=== PATIENT | male | born 1985 | race Caucasian/White ===

== ENCOUNTER → 2019-03-15 11:33 | Outpatient (CLI) | payer OTHER, SELFPAY ==
--- NOTE | 2019-03-15 | DI.RAD.S_ITS ---
PROCEDURE: XR CHEST 2V INDICATIONS: LEFT RIB PAIN AND SHORTNESS OF BREATH TECHNIQUE: 2 views of the chest were acquired. COMPARISON: [facility], [place], XR RIBS LT 2V, 03/15/2019, 12:06. [facility], [place], CHEST 2 VIEW, 11/08/2015, 11:26. FINDINGS: Surgical changes and devices: None. Lungs and pleura: Lungs are clear. No pleural effusions or pneumothorax. Incidental note is made of a BB overlying the left lung base, which is not evident on the lateral view and was not appreciated on the prior study. This is felt to represent a marker. Mediastinum: Mediastinal contours are normal. Heart size is normal. Bones and chest wall: No suspicious bony abnormalities. Soft tissues appear unremarkable. IMPRESSION: No acute cardiopulmonary process is evident. Dictated by: Leonel Peter M.D. on 03/15/2019 at 14:23 Approved by: Leonel Peter M.D. on 03/15/2019 at 14:24
--- NOTE | 2019-03-15 | DI.RAD.S_ITS ---
PROCEDURE: XR RIBS LT 2V INDICATIONS: LEFT RIB PAIN AND SHORTNESS OF BREATH TECHNIQUE: 2 views of the left ribs were acquired. COMPARISON: None. FINDINGS: Surgical changes and devices: None. Bones and chest wall: No displaced left rib fractures or dislocations. No suspicious bony lesions. Overlying soft tissues appear unremarkable. Lungs and pleura: The visualized lung appears clear. No pleural effusions or pneumothorax are visible. IMPRESSION: No displaced left rib fractures are evident. Dictated by: Leonel Peter M.D. on 03/15/2019 at 14:24 Approved by: Leonel Peter M.D. on 03/15/2019 at 14:25
== END ==
PROVIDERS: Visit Provider Internal Medicine
DX: R06.02 Shortness of breath (principal); R07.81 Pleurodynia
CPT/HCPCS: 71046; 71100

== ENCOUNTER 2020-10-06 07:14 | Emergency (ER) | payer OTHER, SELFPAY ==
[2020-10-06] VITALS (17 sets, daily range): BP systolic 119–148; BP diastolic 74–97; PULSE 55–96; RESP 14–26; TEMP 36.9; O2SAT 96–99; BMI 29.4
--- NOTE | 2020-10-06 07:25 | DI.RAD.S_ITS ---
PROCEDURE: XR CHEST 1V INDICATIONS: chest pain TECHNIQUE: One view of the chest was acquired. COMPARISON: [facility], , XR CHEST 2V, 03/15/2019, 12:03. [facility], , CHEST 2 VIEW, 11/08/2015, 11:26. FINDINGS: Surgical changes and devices: None. Lungs and pleura: Lungs are clear. No pleural effusions or pneumothorax. Mediastinum: Mediastinal contours appear normal. Heart size is normal. Bones and chest wall: No suspicious bony lesions. Overlying soft tissues appear unremarkable. IMPRESSION: Normal for age, source of current chest pain symptoms is not seen. Dictated by: Cory Heck M.D. on 10/06/2020 at 8:11 Approved by: Cory Heck M.D. on 10/06/2020 at 8:12
[2020-10-06 07:31] LABS: Add Manual Diff / Slide Review NO; Basophils Absolute Auto 100 /uL (0-100); Basophils Percent Auto 0.6 % (0-2); Eosinophils Absolute Auto 100 /uL (0-450); Eosinophils Percent Auto 0.9 % (2-4); Hematocrit 42.1 % (41-53); Hemoglobin 14.8 g/dL (13.5-17.5); Lymphocytes Absolute Auto 2300 /uL (1100-4500); Lymphocytes Percent Auto 22.4 % (25-40); Mean Corpuscular HGB Conc 35.2 % (30-36); Mean Corpuscular Hemoglobin 30.5 PG (26-34); Mean Corpuscular Volume 86.7 fL (80-100); Monocytes Absolute Auto 1400 /uL (0-900); Monocytes Percent Auto 13.8 % (3-14); Neutrophils Absolute Auto 6400 /uL (1500-7000); Neutrophils Percent Auto 62.3 % (50-75); Platelet Count 184 X10^3/uL (150-400); Red Blood Cell Count 4.86 X10^6/uL (4.5-5.9); Red Cell Distribution Width 12.1 % (11.6-14.8); White Blood Cell Count 10.2 X10^3/uL (4.5-11.0)
--- NOTE | 2020-10-06 07:31 | ED.CHESTPAIN ---
HPI - Chest Pain General Chief Complaint: Chest Pain Stated Complaint: PAIN IN LEFT SHOULDER TO CHEST WOKE HIM UP Time Seen by Provider: 10/06/20 07:31 Source: patient Mode of arrival: Ambulatory Limitations: no limitations History of Present Illness HPI narrative: This is a 34-year-old male comes emergency department complaint of chest pressure and pain that woke him up from sleep this morning at 6:00 a.m.. Patient does have little bit of shortness of breath. He has had a bili diaphoresis. No nausea or vomiting. He denies any radiation except to his shoulder. Patient denies any radiation to his back. He denies any musculoskeletal pain recent injury. Patient denies any other GI or urinary symptoms. Patient denies any medical issues. He had eye surgery the age of 8 but has not had any other prior surgeries. He does smoke half pack per day of tobacco. One mixed drink daily. THC for illicit but no other recreational drugs. He denies any cardiac family history. Related Data Allergies Allergy/AdvReac Type Severity Reaction Status Date / Time No Known Drug Allergies Allergy Verified 10/06/20 07:21 Review of Systems Review of Systems ROS Unobtainable: All systems reviewed & are unremarkable except as noted in HPI and below Patient History Social History Smoking Status: Current every day smoker Smoking Status: Current every day smoker alcohol intake frequency: a few times a week Substance Use Type: marijuana Exam Narrative Exam Narrative: GENERAL: Alert and oriented x three, well-nourished male in mild distress. Patient is diaphoretic. HEENT: Head normocephalic, atraumatic, EOMI, pupils reactive, face symmetric, moist mucous membranes NECK: Supple, full range of motion CARDIOVASCULAR: Regular rate and rhythm without murmurs, rubs or gallops. No reproducible chest pain. RESPIRATORY: Breath sounds equal bilaterally, no wheezes rales or rhonchi. No tachypnea. ABDOMEN: Soft, nontender. Normoactive bowel sounds all 4 quadrants. No guarding or rebound, rigidity, no mass, no pulsatile mass. : No CVA tenderness EXTREMITIES: Normal range of motion, no clubbing or edema. Neurovascularly intact NEUROLOGICAL: Cranial nerves II through XII grossly intact. Moving all extremities SKIN: Warm, dry, no petechiae, no rashes or lesions. Initial Vital Signs Initial Vital Signs: Vital Signs Temperature 98.5 F 10/06/20 07:21 Pulse Rate 75 10/06/20 07:21 Respiratory Rate 16 10/06/20 07:21 Blood Pressure 137/80 10/06/20 07:21 Pulse Oximetry 99 10/06/20 07:21 Course Orders Ordered: ED Orders 10/06/20 07:25 XR chest 1V Stat Complete Blood Count AUTO DIFF Stat Comprehensive Metabolic Panel Stat Lipase Stat NT-proBNP (BNP-Adult 18+) Stat Partial Thromboplastin Time Stat Prothrombin Time INR Stat Troponin & CK Cardiac Panel Stat EKG-12 Lead Stat Discontinued Medications Aspirin (Aspirin 81 Mg Chew Tab) 324 mg PO NOW ONE Stop: 10/06/20 07:32 Last Admin: 10/06/20 07:39 Dose: 324 mg Documented by: GILSON Heparin Sodium (Porcine) (Heparin 5,000 Unit/Ml Vial) 5,000 unit IV NOW ONE Stop: 10/06/20 07:42 Last Admin: 10/06/20 07:43 Dose: 5,000 unit Documented by: GILSON Sodium Chloride (Normal Saline 0.9%) 1,000 mls @ 150 mls/hr IV CONT QIANA Last Infusion: 10/06/20 08:04 Dose: 0 mls/hr Documented by: Admin: 10/06/20 07:39 Dose: 150 mls/hr Documented by: GILSON Heparin Sodium/Dextrose (Heparin Drip) 25,000 unit in 500 mls @ 20.466 mls/hr IV CONT QIANA; Protocol Last Infusion: 10/06/20 08:04 Dose: 0 units/kg/hr, 0 mls/hr Documented by: Admin: 10/06/20 07:45 Dose: 12 units/kg/hr, 20.466 mls/hr Documented by: GILSON Nitroglycerin (Nitroglycerin 0.4 Mg Sl Tab) 0.4 mg SL [id number] PRN PRN Reason: pain Last Admin: 10/06/20 07:52 Dose: 0.4 mg Documented by: Admin: 10/06/20 07:40 Dose: 0.4 mg Documented by: GILSON Consultations Consultation #1: Dr. Rafy SHEPPARD. Spoke with emergency physician. Reviewed patient's EKG which does appear to show new changes from a prior in 2016. Patient has somewhat convincing story and is diaphoretic here in the department. Patient does not have any significant history other than tobacco use and THC with no significant family cardiac history. EKG was faxed. [facility] Lab Tech will re-contacted they were able to review prior to transfer. Dr. Hillman called back and they are currently involved with too many STEMI's and as that we redirect to alternate facility. Time: 07:41 Consultation #2: Dr. Traylor, at [facility] accepts for transfer. Patient labs are pending. Time: 07:53 Vital Signs Vital signs: Vital Signs - 8 hr 10/06/20 07:21 10/06/20 07:35 10/06/20 07:37 Temperature 98.5 F Pulse Rate 75 65 56 L Respiratory Rate 16 24 23 Blood Pressure 137/80 135/97 H Pulse Oximetry 99 98 98 10/06/20 07:40 10/06/20 07:44 10/06/20 07:45 Temperature Pulse Rate 95 H 68 Respiratory Rate 26 H 23 Blood Pressure 135/78 148/83 H Pulse Oximetry 98 10/06/20 07:46 10/06/20 07:47 10/06/20 07:48 Temperature Pulse Rate 60 72 60 Respiratory Rate 16 20 16 Blood Pressure Pulse Oximetry 97 97 10/06/20 07:49 10/06/20 07:50 10/06/20 07:51 Temperature Pulse Rate 57 L 59 L 67 Respiratory Rate 15 20 21 Blood Pressure 119/74 Pulse Oximetry 96 97 97 10/06/20 07:52 10/06/20 07:53 10/06/20 07:54 Temperature Pulse Rate 58 L 67 96 H Respiratory Rate 14 23 25 H Blood Pressure 119/74 130/82 Pulse Oximetry 98 98 98 10/06/20 07:55 10/06/20 07:56 Temperature Pulse Rate 81 78 Respiratory Rate 20 20 Blood Pressure Pulse Oximetry 98 MDM - Chest Pain Lab Data Result diagrams: 10/06/20 07:25 10/06/20 07:25 Labs: Lab Results 10/06/20 10/06/20 10/06/20 Range/Units 07:25 07:25 07:25 WBC 10.2 (4.5-11.0) X10^3/uL RBC 4.86 (4.5-5.9) X10^6/uL Hgb 14.8 (13.5-17.5) g/dL Hct 42.1 (41-53) % MCV 86.7 (80-100) fL MCH 30.5 (26-34) PG MCHC 35.2 (30-36) % RDW 12.1 (11.6-14.8) % Plt Count 184 (150-400) X10^3/uL Neut % (Auto) 62.3 (50-75) % Lymph % (Auto) 22.4 L (25-40) % [place] % (Auto) 13.8 (3-14) % Eos % (Auto) 0.9 L (2-4) % Baso % (Auto) 0.6 (0-2) % Neut # (Auto) 6400 (2709-9573) /uL Lymph # (Auto) 2300 (2987-3545) /uL [place] # (Auto) 1400 H (0-900) /uL Eos # (Auto) 100 (0-450) /uL Baso # (Auto) 100 (0-100) /uL PT 12.1 (10.1-12.7) SECONDS INR 1.1 (0.9-1.3) APTT 34 (26.4-36.2) SECONDS Sodium 139 (137-145) mmol/L Potassium 4.0 (3.4-5.1) mmol/L Chloride 103 (98-107) mmol/L Carbon Dioxide 29 (22-32) mmol/L BUN 12 (9-20) mg/dL Creatinine 0.86 (0.66-1.25) mg/dL Estimated GFR > 60.0 (>60) mL/min BUN/Creatinine Ratio 14.0 (6-22) Glucose 105 H (70-100) mg/dL Calcium 9.4 (8.4-10.2) mg/dL Total Bilirubin 0.6 (0.2-1.3) mg/dL AST 38 (17-59) IU/L ALT 27 (<50) IU/L Alkaline Phosphatase 90 (38-126) U/L Total Creatine Kinase 94 (55-170) U/L CK-MB (CK-2) TNP CK-MB (CK-2) Rel Index TNP Troponin I 0.710 H* (0.01-0.034) ng/mL NT-Pro-B Natriuret Pep 318 H (<125) pg/mL Total Protein 7.9 (6.3-8.2) g/dL Albumin 4.7 (3.5-5.0) g/dL Globulin 3.2 (1.7-4.1) g/dL Albumin/Globulin Ratio 1.5 (1.0-2.8) Lipase 53 (23-300) U/L Imaging Data Chest x-ray: Attestation: I personally reviewed and interpreted this imaging study as follows: My Impression: nap ECG Data Attestation: I personally reviewed and interpreted this ECG as follows: Prior ECG tracings: available for review Interpretation: Sinus bradycardia ST elevation in 3 2 in AVF. Patient appears have hyperacute T-waves in V4 through V6. Patient does have prior EKG that does not show elevation. MDM Narrative Medical decision making narrative: 34-year-old male with complaint of chest pain that started this morning with diaphoresis, nausea and shortness of breath. Patient appears to have new EKG changes that show elevation in 2 3 and AVF with possible hyper Q-waves in lateral leads. Patient has a prior EKG which does appear different today. Patient does possibly have a Q-wave. We do not have Cardiology available here. They are acutely tied up with multiple other patients so plan for transfer to PCI available facility. Aspirin 324 mg were given, nitro was given department with minimal improvement. Patient also started on heparin. Patient discussed plan to go to [facility]. I spoke with emergency room physician who accepts. EKG was faxed. Patient's labs and return in interim well being transferred and troponin is 0.708. Patients other labs do not show acute abnormalities. Critical Care Time Critical Care Time Critical Care Time: Yes Total Critical Care Time: 30 Attestation: The high probability of a clinically significant, sudden or life threatening deterioration of the [cardiac] system(s) required my full and direct attention, intervention and personal management. The aggregate critical care time was [] minutes. This time is in addition to time spent performing reported procedures but includes the following: [x] Data Review and interpretation [x] Patient assessment and monitoring of vital signs [x] Documentation [x] Medication orders and management Discharge Plan Departure Patient Disposition: Xfer Acute Care Hospital Clinical Impression: ST elevation (STEMI) myocardial infarction
[2020-10-06 07:38] LABS: INR 1.1 (0.9-1.3); Prothrombin Time 12.1 SECONDS (10.1-12.7)
[2020-10-06] MEDS: SODIUM CHLORIDE 0.9% 1,000 ML 150 ML IV (07:39)
[2020-10-06] MEDS: ASPIRIN 81 MG CHEW TAB 324 MG PO (07:39)
[2020-10-06] MEDS: NITROGLYCERIN 0.4 MG SL TAB SL ×2 (07:40→07:52)
[2020-10-06 07:41] LABS: PTT Partial Thromboplastin Tim 34 SECONDS (26.4-36.2)
[2020-10-06 07:42] LABS: Alanine Aminotransferase 27 IU/L (<50); Albumin 4.7 g/dL (3.5-5.0); Albumin Globulin Ratio 1.5 (1.0-2.8); Alkaline Phosphatase 90 U/L (38-126); Aspartate Aminotransferase 38 IU/L (17-59); Bilirubin Total 0.6 mg/dL (0.2-1.3); Blood Urea Nitrogen 12 mg/dL (9-20); Calcium 9.4 mg/dL (8.4-10.2); Carbon Dioxide 29 mmol/L (22-32); Chloride 103 mmol/L (98-107); Creatine Kinase 94 U/L (55-170); Estimated Glomerular Filt Rate > 60.0 mL/min (>60); Globulin 3.2 g/dL (1.7-4.1); Glucose 105 mg/dL (70-100); HEMOLYSIS < 15 (0-50); Lipase 53 U/L (23-300); Sodium 139 mmol/L (137-145); Total Protein 7.9 g/dL (6.3-8.2)
[2020-10-06] MEDS: HEPARIN 5,000 UNIT/ML VIAL 5000 UNIT IV (07:43)
[2020-10-06] MEDS: HEPARIN DRIP 25,000 UNIT/500 ML IV.SOLN 20.466 UNIT IV (07:45)
[2020-10-06 07:52] LABS: NT-proBNP (BNP-Adult 18+) 318 pg/mL (<125)
--- NOTE | 2020-10-06 08:05 | PC.NURSE ---
transferred with [facility] with Heparin gtt infusing at 20.47 mls/hour. normal saline at 150 cc hour. pt received # 2 of NTG tab. pain 2/out of 10 left chest wall, left shoulder
== END 2020-10-06 07:56 | disposition short-term general hospital (02) ==
PROVIDERS: Emergency Provider Emergency Medicine
DX: I21.3 ST elevation (STEMI) myocardial infarction of unspecified site (principal); R07.9 Chest pain, unspecified
CPT/HCPCS: 36415; 71045; 80053; 82550; 83690; 83880; 84484; 85025; 85610; 85730; 93005; 96365; 96375; 99285; 99291; J1644

== ENCOUNTER → 2021-07-12 16:18 | Outpatient (CLI) | payer BC, SELFPAY ==
--- NOTE | 2021-07-12 16:22 | DI.RAD.S_ITS ---
PROCEDURE: XR CHEST 2V INDICATIONS: CHEST PAIN TECHNIQUE: 2 views of the chest were acquired. COMPARISON: [facility], [place], XR CHEST 1V, 10/06/2020, 7:34. [facility], [place], XR CHEST 2V, 03/15/2019, 12:03. FINDINGS: Surgical changes and devices: None. Lungs and pleura: Lungs are clear. No pleural effusions or pneumothorax. Mediastinum: Mediastinal contours are normal. Heart size is normal. Bones and chest wall: No suspicious bony abnormalities. Soft tissues appear unremarkable. IMPRESSION: No acute cardiopulmonary disease. Dictated by: Jonatan Allen [facility] Interpreted: Jani Cornelius MD on 07/12/2021 at 17:16 Approved by: Jani Cornelius M.D. on 07/12/2021 at 17:47
== END ==
PROVIDERS: PCP Student in an Organized Health Care Education/Training Program; Referring Provider Student in an Organized Health Care Education/Training Program; Visit Provider Student in an Organized Health Care Education/Training Program
DX: R07.9 Chest pain, unspecified (principal); I10 Essential (primary) hypertension
CPT/HCPCS: 71046

== ENCOUNTER → 2021-08-04 13:04 | Outpatient (CLI) | payer BC, SELFPAY ==
--- NOTE | 2021-08-04 13:07 | DI.RAD.S_ITS ---
PROCEDURE: XR CHEST 2V INDICATIONS: CHEST PAIN TECHNIQUE: 2 views of the chest were acquired. COMPARISON: [facility], [place], XR RIBS LT 2V, 03/15/2019, 12:06. [facility], [place], CHEST 2 VIEW, 11/08/2015, 11:26. [facility], [place], XR CHEST 2V, 03/15/2019, 12:03. [facility], [place], XR CHEST 1V, 10/06/2020, 7:34. [facility], [place], XR CHEST 2V, 07/12/2021, 16:13. FINDINGS: Surgical changes and devices: None. Lungs and pleura: Lungs are clear. No pleural effusions or pneumothorax. Mediastinum: Mediastinal contours are normal. Heart size is normal. Bones and chest wall: No suspicious bony abnormalities. Soft tissues appear unremarkable. IMPRESSION: Normal plain films. Dictated by: Charly Gutierres M.D. on 08/04/2021 at 12:31 Approved by: Charly Gutierres M.D. on 08/04/2021 at 12:32
== END ==
PROVIDERS: PCP Student in an Organized Health Care Education/Training Program; Referring Provider Student in an Organized Health Care Education/Training Program; Visit Provider Student in an Organized Health Care Education/Training Program
DX: R07.89 Other chest pain (principal); I25.2 Old myocardial infarction; I10 Essential (primary) hypertension
CPT/HCPCS: 71046

== ENCOUNTER → 2021-08-30 | Outpatient (CLI) | payer BC, SELFPAY ==
--- NOTE | 2021-08-30 | DI.ECHO.S_ITS ---
[facility] +---------+ : : [address] : [address] : : : : [id number] : : : : Phone: [phone] Echocardiogram Report + + :Name: ALFREDO WILKINS Study Date: 08/30/2021 Height: 68 in : :[facility] ReadingLocation: Weight: 207 lb : : Gender: Male BSA: 2.1 m2 : :: 1985 Age: 35 yrs BP: 142/91 mmHg: :Reason For Study: Chest pain : :Ordering Physician: FANNY, : :FAITH Performed By: Cruzito Montalvo : :Referring: FAITH ESCOBEDO : + + Interpretation Summary The ejection fraction is estimated to be 55-60%. Diastolic parameters suggest probable normal left ventricular diastolic function and normal filling pressures. The right ventricle is normal in size and function. No significant valvular abnormalities. Unable to estimate PASP. Procedure: A two-dimensional transthoracic echocardiogram with color flow and Doppler was performed. The study quality was technically adequate. There is no prior echocardiogram noted for this patient. Left Ventricle: The left ventricle is normal in size and wall thickness. Left ventricular systolic function is normal. The ejection fraction is estimated to be 55-60%. There are no focal wall motion abnormalities. Diastolic parameters suggest probable normal left ventricular diastolic function and normal filling pressures. Right Ventricle: The right ventricle is normal in size and function. Atria: Both atria are normal in size. The interatrial septum grossly appears intact with no obvious evidence for an atrial septal defect. Mitral Valve: The mitral valve is normal in structure and function. There is no mitral regurgitation noted. Aortic Valve: The aortic valve is normal in structure and function. There is no aortic valve stenosis. No aortic regurgitation is present. Tricuspid Valve: The tricuspid valve is normal in structure and function. No tricuspid regurgitation. Pulmonary artery pressures cannot be estimated because of the lack of a measurable TR jet velocity. Pulmonic Valve: The pulmonic valve is normal in structure and function. There is no pulmonic valvular regurgitation. Great Vessels: The aortic root is normal size. The dimensions of the ascending aorta are normal. The IVC is of normal diameter and collapses greater than 50% with a sniff. This suggests a low right atrial pressure of 3 mm Hg. Pericardium/ Pleura There is no pericardial effusion. There is no pleural effusion. MMode/2D Measurements & Calculations LVIDd: 4.8 cm LVOT diam: 2.0 cm LVIDs: 3.2 cm FS: 33.3 % IVSd: 0.90 cm LVPWd: 0.80 cm LV wood. diameter/BSA (cm/m^2): 2.3 LV sys. diameter/BSA (cm/m^2): 1.5 LA dimension: 3.3 cm RA long axis: 4.4 cm LA A2 area: 15.5 cm2 LA A4 area: 17.0 cm2 LA length (vol): 5.0 cm LA vol: 44.8 ml LA vol index: 21.6 ml/m2 TAPSE_phl: 3.0 cm Doppler Measurements & Calculations Ao V2 max: 149.0 cm/sec LVOT Max Shashi: 146.0 cm/sec Ao V2 mean: 101.0 cm/sec LV V1 max P.5 mmHg Ao max P.0 mmHg LV V1 VTI: 28.9 cm Ao mean P.0 mmHg JUAN M(I,D): 3.2 cm2 Ao V2 VTI: 28.5 cm JUAN M(V,D): 3.1 cm2 sev ratio: 1.0 JUAN M indexed to BSA (cm^2/m^2): 1.5 MV E max shashi: 101.0 cm/sec SV(LVOT): 90.8 ml MV A max shashi: 70.3 cm/sec MV E/A: 1.4 Med Peak E' Shashi: 12.7 cm/sec E/E' med: 8.0 Lat Peak E' Hsashi: 19.8 cm/sec E/E' lat: 5.1 E/e' average: 6.5 MV dec time: 0.19 sec AV VR_phl: 0.98 MV P1/2t-pr_phl: 54.0 msec JUAN M(VTI)/BSA_phl: 1.5 Reading Physician:02:33 PM
== END ==
LOC: ECHO 13:33
PROVIDERS: PCP Student in an Organized Health Care Education/Training Program; Referring Provider Student in an Organized Health Care Education/Training Program; Visit Provider Student in an Organized Health Care Education/Training Program
DX: R07.89 Other chest pain (principal); I10 Essential (primary) hypertension; I25.2 Old myocardial infarction
CPT/HCPCS: 93306

== ENCOUNTER → 2024-05-10 11:06 | Outpatient (CLI) | payer OTHER, SELFPAY ==
[2024-05-10 14:39] LABS: COVID-19 CEPHEID 4-PLEX PCR Negative (Negative); Influenza A - CEPHEID Flu A NEGATIVE (NEGATIVE); Influenza B - CEPHEID Flu B NEGATIVE (NEGATIVE); Respiratory Syncytial Virus POSITIVE (Negative)
== END ==
PROVIDERS: PCP Student in an Organized Health Care Education/Training Program; Visit Provider Nurse Practitioner Family
DX: R05.1 Acute cough (principal); J02.9 Acute pharyngitis, unspecified
CPT/HCPCS: 0241U; 87070; 87077; 87147